=== PATIENT | female | born 1965 | race Caucasian/White ===

== ENCOUNTER 2016-11-01 16:24 | Emergency (ER) | payer SELFPAY ==
[~2016-11-01] VITALS: Ht 157.5 cm; Wt 56.0 kg
[~2016-11-01 16:24] MED LIST: NO HOME MEDS; ZPAK PO
[2016-11-01 17:17] VITALS: BP 134/70
== END 2016-11-01 17:16 | disposition home or self-care (01) | DRG 605 ==
LOC: ED 16:24
PROC: 2W3JX1Z Immobilization of Right Finger using Splint (ICD-10-PCS; principal; 2016-11-01)
DX: S60.041A Contusion of right ring finger without damage to nail, initial encounter (principal); F17.210 Nicotine dependence, cigarettes, uncomplicated; W22.8XXA Striking against or struck by other objects, initial encounter; Y93.H3 Activity, building and construction

== ENCOUNTER 2017-06-30 09:17 | Emergency (ER) | payer SELFPAY ==
[~2017-06-30] VITALS: Ht 157.5 cm; Wt 63.0 kg
[2017-06-30 10:21] LABS: HEMATOCRIT 45.9 % (37.0-47.0); HEMOGLOBIN 15.7 g/dl (12.0-16.0); IMMATURE GRANULOCYTES 0.2 % (0.0-1.0); MEAN CELL VOLUME 89.5 fL CALC (80.0-100.0); MEAN CORPUSCULAR HGB 30.6 pG CALC (26.0-32.0); MEAN CORPUSCULAR HGB CONC 34.2 g/L CALC (32.0-36.0); NEUT# 6.8 thou/uL (2.00-7.15); RED BLOOD COUNT 5.13 mill/uL (4.20-5.60)
[2017-06-30 10:27] LABS: URINE BILIRUBIN - DIPSTICK NEGATIVE (NEGATIVE); URINE BLOOD DIPSTICK LARGE (NEGATIVE); URINE COLOR YELLOW; URINE GLUCOSE - DIPSTICK NEGATIVE (NEGATIVE); URINE KETONE TRACE mg/dL (NEGATIVE); URINE LEUK ESTERASE NEGATIVE (NEGATIVE); URINE NITRITE - DIPSTICK NEGATIVE (Negative); URINE PROTEIN - DIPSTICK NEGATIVE (NEG-TRACE); URINE SPECIFIC GRAVITY >=1.030; URINE UROBILINOGEN - DIPSTICK 0.2 E.U./dL (0.2)
[2017-06-30 10:29] LABS: URINE CLARITY HAZY; URINE RBC 25-50 RBC/hpf (0-5)
[2017-06-30 10:30] LABS: URINE EPITHELIAL CELLS MODERATE EPI/hpf (0-FEW)
[2017-06-30 10:36] LABS: ALBUMIN 4.7 g/dL (3.2-5.0); ALKALINE PHOSPHATASE 100 u/l (38-126); ANION GAP 18 (6-22 (CALC)); BILIRUBIN, TOTAL 0.7 mg/dL (0.0-1.4); BUN 13 mg/dL (7-17); BUN/CREATININE RATIO 19 (12-20 (CALC)); CALCIUM 10.6 mg/dL (8.4-10.2); CARBON DIOXIDE 20 mmol/l (22-30); CHLORIDE 107 mmol/l (95-108); CREATININE 0.7 mg/dL (0.5-1.0); GFR > 60 ML/MIN (>=60 (CALC)); GFR FOR AFR.AMER. > 60 ML/MIN (>=60 (CALC)); GLUCOSE 111 mg/dL (65-105); POTASSIUM 4.5 mmol/l (3.5-5.1); SGOT/AST 33 u/l (14-36); SGPT/ALT 43 u/l (9-52); SODIUM 140 mmol/l (137-146); TOTAL PROTEIN 7.8 g/dL (6.3-8.2)
[2017-06-30 10:54] VITALS: BP 137/80
[2017-06-30] MEDS ORDERED: ZOFRAN ODT4 MG PO (10:55)
[2017-06-30] MEDS ORDERED: CIPROFLOXACN500 MG PO (10:55)
== END 2017-06-30 11:06 | disposition left against medical advice (07) | DRG 392 ==
LOC: ED 09:17
PROVIDERS: Emergency Medicine
DX: R10.2 Pelvic and perineal pain (principal); R11.0 Nausea; R31.9 Hematuria, unspecified; Z91.19 Patient's noncompliance with other medical treatment and regimen

== ENCOUNTER 2017-08-15 13:50 | Emergency (ER) | payer SELFPAY ==
[~2017-08-15] VITALS: Ht 157.5 cm; Wt 70.0 kg
[~2017-08-15 13:50] MED LIST changes: +CIPROFLOXACN500 MG PO; +ZOFRAN ODT4 MG PO
[2017-08-15] MEDS ORDERED: MOTRIN400 MG PO (15:27)
[2017-08-15 15:40] VITALS: BP 135/87
== END 2017-08-15 15:40 | disposition home or self-care (01) | DRG 556 ==
LOC: ED 13:50
DX: M25.511 Pain in right shoulder (principal); F17.210 Nicotine dependence, cigarettes, uncomplicated

== ENCOUNTER 2017-09-19 15:19 | Emergency (ER) | payer SELFPAY ==
[~2017-09-19] VITALS: Ht 157.5 cm; Wt 63.2 kg
[~2017-09-19 15:19] MED LIST changes: +MOTRIN400 MG PO
[2017-09-19 18:50] VITALS: BP 131/79
== END 2017-09-19 18:50 | DRG 392 ==
LOC: ED 15:19
DX: K22.2 Esophageal obstruction (principal); F17.210 Nicotine dependence, cigarettes, uncomplicated

== ENCOUNTER 2017-12-16 22:16 | Emergency (ER) | payer SELFPAY ==
[~2017-12-16] VITALS: Ht 157.5 cm; Wt 62.0 kg
[2017-12-16] MEDS ORDERED: BENADRYL 50MG C50 MG PO (23:30)
[2017-12-16] MEDS ORDERED: AMOXICILLIN500 MG PO (23:30)
[2017-12-16] MEDS ORDERED: ULTRAM50 M1 PO (23:33)
[2017-12-16 23:38] VITALS: BP 122/77
== END 2017-12-16 23:39 | disposition home or self-care (01) | DRG 607 ==
LOC: ED 22:16
DX: S90.861A Insect bite (nonvenomous), right foot, initial encounter (principal); L03.115 Cellulitis of right lower limb; F17.210 Nicotine dependence, cigarettes, uncomplicated; W57.XXXA Bitten or stung by nonvenomous insect and other nonvenomous arthropods, initial encounter

== ENCOUNTER 2018-02-16 18:10 | Emergency (ER) | payer SELFPAY ==
[~2018-02-16] VITALS: Ht 157.5 cm; Wt 62.2 kg
[~2018-02-16 18:10] MED LIST changes: +AMOXICILLIN500 MG PO; +BENADRYL 50MG C50 MG PO; +ULTRAM50 M1 PO
[2018-02-16] MEDS ORDERED: TRAMADOL HCL50 MG PO (18:46)
[2018-02-16] MEDS ORDERED: MOTRIN800 MG PO (18:46)
[2018-02-16 18:55] VITALS: BP 127/75
== END 2018-02-16 18:55 | disposition home or self-care (01) | DRG 563 ==
LOC: ED 18:10
PROC: 2W3CX1Z Immobilization of Right Lower Arm using Splint (ICD-10-PCS; principal; 2018-02-16)
DX: S62.316A Displaced fracture of base of fifth metacarpal bone, right hand, initial encounter for closed fracture (principal); X58.XXXA Exposure to other specified factors, initial encounter; Y92.009 Unspecified place in unspecified non-institutional (private) residence as the place of occurrence of the external cause

== ENCOUNTER 2018-02-18 13:24 | Emergency (ER) | payer SELFPAY ==
[~2018-02-18] VITALS: Ht 157.5 cm; Wt 65.9 kg
[~2018-02-18 13:24] MED LIST changes: +MOTRIN800 MG PO; +TRAMADOL HCL50 MG PO
[2018-02-18] MEDS ORDERED: EXCEDRIN PO (13:36)
[2018-02-18 14:01] VITALS: BP 129/83
== END 2018-02-18 14:00 | disposition home or self-care (01) | DRG 951 ==
LOC: ED 13:24
DX: Z46.89 Encounter for fitting and adjustment of other specified devices (principal); F17.210 Nicotine dependence, cigarettes, uncomplicated

== ENCOUNTER 2018-12-26 14:44 | Emergency (ER) | payer SELFPAY ==
[~2018-12-26] VITALS: Ht 157.5 cm; Wt 65.0 kg
[~2018-12-26 14:44] MED LIST changes: +EXCEDRIN PO
[2018-12-26] MEDS ORDERED: MOTRIN400 MG PO (16:00)
[2018-12-26 16:14] VITALS: BP 134/75
== END 2018-12-26 16:22 | disposition home or self-care (01) | DRG 536 ==
LOC: ED 14:44
DX: S32.591A Other specified fracture of right pubis, initial encounter for closed fracture (principal); F17.200 Nicotine dependence, unspecified, uncomplicated; X50.0XXA Overexertion from strenuous movement or load, initial encounter; Y93.F1 Activity, caregiving, bathing; Y92.002 Bathroom of unspecified non-institutional (private) residence as the place of occurrence of the external cause

== ENCOUNTER 2020-01-31 02:27 | Emergency (ER) | payer SELFPAY ==
[~2020-01-31] VITALS: Ht 157.5 cm; Wt 61.0 kg
[2020-01-31 02:44] VITALS: BP 147/85
== END 2020-01-31 03:20 | disposition home or self-care (01) | DRG 607 ==
LOC: ED 02:27
DX: S40.862A Insect bite (nonvenomous) of left upper arm, initial encounter (principal); F17.200 Nicotine dependence, unspecified, uncomplicated; W57.XXXA Bitten or stung by nonvenomous insect and other nonvenomous arthropods, initial encounter

== ENCOUNTER 2020-02-16 01:00 | Emergency (ER) | payer SELFPAY ==
[~2020-02-16] VITALS: Ht 157.5 cm; Wt 63.0 kg
[2020-02-16 01:50] LABS: HEMOGLOBIN 14.4 g/dl (12.0-16.0); IMMATURE GRANULOCYTES 0.4 % (0.0-5.0); MEAN CELL VOLUME 90.2 fL CALC (80.0-100.0); MEAN CORPUSCULAR HGB 29.5 pG CALC (26.0-32.0); MEAN CORPUSCULAR HGB CONC 32.7 g/dL CAL (32.0-36.0); NEUT# 10.46 thou/uL (2.00-7.15); RED BLOOD COUNT 4.88 mill/uL (4.20-5.60)
[2020-02-16 01:51] LABS: URINE BLOOD DIPSTICK LARGE (NEGATIVE); URINE COLOR YELLOW; URINE GLUCOSE - DIPSTICK NEGATIVE (NEGATIVE); URINE KETONE NEGATIVE (NEGATIVE); URINE LEUK ESTERASE NEGATIVE (NEGATIVE); URINE NITRITE - DIPSTICK NEGATIVE (Negative); URINE PROTEIN - DIPSTICK TRACE mg/dL (NEG-TRACE); URINE SPECIFIC GRAVITY >=1.030; URINE UROBILINOGEN - DIPSTICK 0.2 E.U./dL (0.2)
[2020-02-16 02:09] LABS: ALBUMIN 4.6 g/dL (3.2-5.0); ALKALINE PHOSPHATASE 116 u/l (38-126); AMYLASE 92 u/l (30-110); BILIRUBIN, TOTAL 0.5 mg/dL (0.0-1.4); BUN 12 mg/dL (7-17); BUN/CREATININE RATIO 21 (12-20 (CALC)); CHLORIDE 107 mmol/l (95-108); CREATININE 0.6 mg/dL (0.5-1.0); GFR > 60 ML/MIN (>=60 (CALC)); GFR FOR AFR.AMER. > 60 ML/MIN (>=60 (CALC)); LIPASE 68 u/l (23-300); POTASSIUM 3.9 mmol/l (3.5-5.1); SGOT/AST 23 u/l (14-36); SODIUM 139 mmol/l (137-146); TOTAL PROTEIN 8.1 g/dL (6.3-8.2)
[2020-02-16 02:14] LABS: URINE BILIRUBIN - DIPSTICK NEGATIVE (NEGATIVE)
[2020-02-16 02:16] LABS: URINE BACTERIA FEW hpf; URINE CALCIUM OXALATE CRYSTALS FEW lpf; URINE MUCUS FEW hpf (NONE-FEW); URINE SQUAMOUS EPITHELIAL CELL FEW EPI/hpf (0-FEW)
[2020-02-16 02:18] LABS: ANION GAP 10 (6-22 (CALC)); CARBON DIOXIDE 26 mmol/l (22-30)
[2020-02-16 02:41] VITALS: BP 129/60
[2020-02-16] MEDS ORDERED: PHENERGAN25 MG RE (02:42)
== END 2020-02-16 02:55 | disposition home or self-care (01) | DRG 392 ==
LOC: ED 01:00
PROVIDERS: Family Medicine
DX: K52.9 Noninfective gastroenteritis and colitis, unspecified (principal); F17.210 Nicotine dependence, cigarettes, uncomplicated

== ENCOUNTER 2020-11-15 02:28 | Emergency (ER) | payer SELFPAY ==
[~2020-11-15] VITALS: Ht 157.5 cm; Wt 63.0 kg
[~2020-11-15 02:28] MED LIST changes: +PHENERGAN25 MG RE
[2020-11-15] MEDS ORDERED: NAPROXEN500 MG PO (03:47)
[2020-11-15 03:51] VITALS: BP 141/60
== END 2020-11-15 04:03 | disposition home or self-care (01) | DRG 563 ==
LOC: ED 02:28
DX: S43.402A Unspecified sprain of left shoulder joint, initial encounter (principal); F17.200 Nicotine dependence, unspecified, uncomplicated; W01.0XXA Fall on same level from slipping, tripping and stumbling without subsequent striking against object, initial encounter; Y92.003 Bedroom of unspecified non-institutional (private) residence as the place of occurrence of the external cause

== ENCOUNTER 2021-06-04 01:27 | Emergency (ER) | payer SELFPAY ==
[~2021-06-04] VITALS: Ht 157.5 cm; Wt 66.0 kg
[~2021-06-04 01:27] MED LIST changes: +NAPROXEN500 MG PO
[2021-06-04 03:50] VITALS: BP 142/72
== END 2021-06-04 03:50 | disposition home or self-care (01) | DRG 563 ==
LOC: ED 01:27
DX: S63.601A Unspecified sprain of right thumb, initial encounter (principal); S63.501A Unspecified sprain of right wrist, initial encounter; F17.200 Nicotine dependence, unspecified, uncomplicated; W20.8XXA Other cause of strike by thrown, projected or falling object, initial encounter; Y93.89 Activity, other specified; Y92.009 Unspecified place in unspecified non-institutional (private) residence as the place of occurrence of the external cause

== ENCOUNTER 2021-08-24 16:39 | Emergency (ER) | payer SELFPAY ==
[~2021-08-24] VITALS: Ht 157.5 cm; Wt 64.5 kg
[2021-08-24 18:54] LABS: URINE BILIRUBIN - DIPSTICK NEGATIVE (NEGATIVE); URINE BLOOD DIPSTICK MODERATE (NEGATIVE); URINE COLOR YELLOW; URINE GLUCOSE - DIPSTICK NEGATIVE (NEGATIVE); URINE KETONE NEGATIVE (NEGATIVE); URINE LEUK ESTERASE NEGATIVE (NEGATIVE); URINE PH 5.5 (4.5-8.0); URINE PROTEIN - DIPSTICK NEGATIVE (NEG-TRACE); URINE SPECIFIC GRAVITY >=1.030; URINE UROBILINOGEN - DIPSTICK 0.2 E.U./dL (0.2)
[2021-08-24 19:07] LABS: URINE NITRITE - DIPSTICK NEGATIVE (Negative)
[2021-08-24 19:09] LABS: URINE CALCIUM OXALATE CRYSTALS FEW lpf; URINE WBC 0-2 WBC/hpf (0-5)
[2021-08-24 19:28] LABS: HEMOGLOBIN 14.4 g/dl (12.0-16.0); IMMATURE GRANULOCYTES 0.2 % (0.0-5.0); MEAN CELL VOLUME 91.7 fL CALC (80.0-100.0); MEAN CORPUSCULAR HGB 30.7 pG CALC (26.0-32.0); MEAN CORPUSCULAR HGB CONC 33.5 g/dL CAL (32.0-36.0); NEUT# 9.11 thou/uL (2.00-7.15); RED BLOOD COUNT 4.69 mill/uL (4.20-5.60); RED CELL DISTRI WIDTH 12.9 % (11.5-15.5)
[2021-08-24 19:45] LABS: ALBUMIN 4.4 g/dL (3.2-5.0); ALKALINE PHOSPHATASE 89 u/l (38-126); AMYLASE 68 u/l (30-110); BILIRUBIN, TOTAL 0.7 mg/dL (0.0-1.4); BUN 14 mg/dL (7-17); BUN/CREATININE RATIO 23 (12-20 (CALC)); CARBON DIOXIDE 26 mmol/l (22-30); CHLORIDE 106 mmol/l (95-108); CREATININE 0.6 mg/dL (0.5-1.0); GFR > 60 ML/MIN (>=60 (CALC)); GFR FOR AFR.AMER. > 60 ML/MIN (>=60 (CALC)); LIPASE 58 u/l (23-300); SGOT/AST 23 u/l (14-36); SODIUM 140 mmol/l (137-146); TOTAL PROTEIN 7.6 g/dL (6.3-8.2)
[2021-08-24 19:47] LABS: ANION GAP 12 (6-22 (CALC)); POTASSIUM 4.3 mmol/l (3.5-5.1)
[2021-08-24 23:37] VITALS: BP 136/76
== END 2021-08-24 23:37 | disposition home or self-care (01) | DRG 392 ==
LOC: ED 16:39
PROVIDERS: Family Medicine
DX: R10.31 Right lower quadrant pain (principal); E27.9 Disorder of adrenal gland, unspecified; F17.210 Nicotine dependence, cigarettes, uncomplicated; Z90.710 Acquired absence of both cervix and uterus
CPT/HCPCS: Q9967

== ENCOUNTER 2021-09-25 16:04 | Emergency (ER) | payer SELFPAY ==
[~2021-09-25] VITALS: Ht 157.5 cm; Wt 63.0 kg
[2021-09-25 16:15] VITALS: BP 131/82
[2021-09-25 16:30] VITALS: BP 134/75
[2021-09-25 16:45] VITALS: BP 127/73
[2021-09-25 19:49] VITALS: BP 127/73
[2021-09-25] MEDS ORDERED: FLEXERIL5 M1 PO (19:57)
== END 2021-09-25 20:03 | disposition home or self-care (01) | DRG 552 ==
LOC: ED 16:04
DX: M47.22 Other spondylosis with radiculopathy, cervical region (principal); F17.210 Nicotine dependence, cigarettes, uncomplicated

== ENCOUNTER 2021-10-02 17:13 | Emergency (ER) | payer SELFPAY ==
[~2021-10-02] VITALS: Ht 157.5 cm; Wt 65.0 kg
[~2021-10-02 17:13] MED LIST changes: +FLEXERIL5 M1 PO
[2021-10-02 17:21] VITALS: BP 140/70
[2021-10-02 17:30] VITALS: BP 126/81
[2021-10-02 18:03] VITALS: BP 131/73
[2021-10-02] MEDS ORDERED: FLOXIN OTIC0.3 % OD (18:08)
[2021-10-02 18:30] VITALS: BP 117/73
[2021-10-02 18:50] VITALS: BP 128/76
== END 2021-10-02 18:50 | disposition home or self-care (01) | DRG 125 ==
LOC: ED 17:13
DX: T15.91XA Foreign body on external eye, part unspecified, right eye, initial encounter (principal); X58.XXXA Exposure to other specified factors, initial encounter; F17.200 Nicotine dependence, unspecified, uncomplicated

== ENCOUNTER 2022-06-15 01:45 | Emergency (ER) | payer SELFPAY ==
[~2022-06-15] VITALS: Ht 157.5 cm; Wt 61.0 kg
[~2022-06-15 01:45] MED LIST changes: +FLOXIN OTIC0.3 % OD
[2022-06-15 01:52] VITALS: BP 164/83
[2022-06-15 02:00] VITALS: BP 135/78
[2022-06-15 02:25] LABS: HEMATOCRIT 45.3 % (37.0-47.0); IMMATURE GRANULOCYTES 0.2 % (0.0-5.0); MEAN CELL VOLUME 90.2 fL CALC (80.0-100.0); MEAN CORPUSCULAR HGB 29.9 pG CALC (26.0-32.0); MEAN CORPUSCULAR HGB CONC 33.1 g/dL CAL (32.0-36.0); NEUT# 7.73 thou/uL (2.00-7.15); RED BLOOD COUNT 5.02 mill/uL (4.20-5.60)
[2022-06-15 02:34] LABS: ALBUMIN 4.3 g/dL (3.2-5.0); ALKALINE PHOSPHATASE 96 u/l (38-126); ANION GAP 12 (6-22 (CALC)); BILIRUBIN, TOTAL 0.7 mg/dL (0.0-1.4); BUN 13 mg/dL (7-17); BUN/CREATININE RATIO 23 (12-20 (CALC)); CARBON DIOXIDE 22 mmol/l (22-30); CHLORIDE 110 mmol/l (95-108); CREATININE 0.6 mg/dL (0.5-1.0); GFR FOR AFR.AMER. > 60 ML/MIN (>=60 (CALC)); GFR OTHER RACES > 60 ML/MIN (>=60 (CALC)); POTASSIUM 3.9 mmol/l (3.5-5.1); SGOT/AST 23 u/l (14-36); SODIUM 140 mmol/l (137-146); TOTAL PROTEIN 7.6 g/dL (6.3-8.2)
[2022-06-15 03:15] VITALS: BP 125/74
[2022-06-15 04:04] LABS: URINE BILIRUBIN - DIPSTICK NEGATIVE (NEGATIVE); URINE BLOOD DIPSTICK SMALL (NEGATIVE); URINE COLOR YELLOW; URINE GLUCOSE - DIPSTICK NEGATIVE (NEGATIVE); URINE KETONE NEGATIVE (NEGATIVE); URINE LEUK ESTERASE NEGATIVE (NEGATIVE); URINE PROTEIN - DIPSTICK NEGATIVE (NEG-TRACE); URINE SPECIFIC GRAVITY 1.015; URINE UROBILINOGEN - DIPSTICK 0.2 E.U./dL (0.2)
[2022-06-15 04:06] LABS: URINE NITRITE - DIPSTICK NEGATIVE (Negative)
[2022-06-15] MEDS ORDERED: IMITREX100 M1 PO (04:12)
[2022-06-15 04:16] LABS: URINE BACTERIA FEW hpf; URINE RBC 25-50 RBC/hpf (0-5); URINE SQUAMOUS EPITHELIAL CELL FEW EPI/hpf (0-FEW); URINE WBC 0-2 WBC/hpf (0-5)
[2022-06-15 04:19] VITALS: BP 125/74
== END 2022-06-15 06:00 | disposition home or self-care (01) | DRG 103 ==
LOC: ED 01:45
PROVIDERS: Family Medicine
DX: G43.909 Migraine, unspecified, not intractable, without status migrainosus (principal); F17.210 Nicotine dependence, cigarettes, uncomplicated; Z20.822 Contact with and (suspected) exposure to COVID-19

== ENCOUNTER 2022-08-11 20:12 | Emergency (ER) | payer SELFPAY ==
[~2022-08-11] VITALS: Ht 157.5 cm; Wt 61.2 kg
[~2022-08-11 20:12] MED LIST changes: +IMITREX100 M1 PO
[2022-08-11 22:14] VITALS: BP 134/67
== END 2022-08-11 22:20 | disposition home or self-care (01) | DRG 563 ==
LOC: ED 20:12
DX: S63.91XA Sprain of unspecified part of right wrist and hand, initial encounter (principal); F17.200 Nicotine dependence, unspecified, uncomplicated; W01.0XXA Fall on same level from slipping, tripping and stumbling without subsequent striking against object, initial encounter; Y92.009 Unspecified place in unspecified non-institutional (private) residence as the place of occurrence of the external cause

== ENCOUNTER 2022-10-21 23:33 | Emergency (ER) | payer SELFPAY ==
[~2022-10-21] VITALS: Ht 157.5 cm; Wt 61.0 kg
[2022-10-22 00:18] VITALS: BP 147/85
[2022-10-22 00:30] VITALS: BP 138/92
[2022-10-22 01:51] VITALS: BP 138/92
== END 2022-10-22 01:57 | disposition home or self-care (01) | DRG 563 ==
LOC: ED 23:33
DX: S93.601A Unspecified sprain of right foot, initial encounter (principal); F17.200 Nicotine dependence, unspecified, uncomplicated; X50.0XXA Overexertion from strenuous movement or load, initial encounter

== ENCOUNTER 2022-10-31 15:39 | Emergency (ER) | payer SELFPAY ==
[~2022-10-31] VITALS: Ht 157.5 cm; Wt 61.2 kg
[2022-10-31 16:51] VITALS: BP 133/77
[2022-10-31 17:00] VITALS: BP 111/75
[2022-10-31 17:27] VITALS: BP 118/79
[2022-10-31 17:30] VITALS: BP 128/77
[2022-10-31 18:05] VITALS: BP 128/77
== END 2022-10-31 18:06 | disposition home or self-care (01) | DRG 556 ==
LOC: ED 15:39
DX: M25.512 Pain in left shoulder (principal); W01.0XXA Fall on same level from slipping, tripping and stumbling without subsequent striking against object, initial encounter; Y92.007 Garden or yard of unspecified non-institutional (private) residence as the place of occurrence of the external cause

== ENCOUNTER 2022-11-02 18:56 | Emergency (ER) | payer SELFPAY ==
[~2022-11-02] VITALS: Ht 157.5 cm; Wt 61.4 kg
[2022-11-02] VITALS (7 sets, daily range): BP systolic 124–158; BP diastolic 78–90
[2022-11-02 20:27] LABS: BASO% 0.4 % (0-3); EOS% 0.8 % (0-8); HEMATOCRIT 44.3 % (37.0-47.0); IMMATURE GRANULOCYTES 0.3 % (0.0-5.0); LYMPH% 13.1 % (15-41); MEAN CELL VOLUME 89.3 fL CALC (80.0-100.0); MEAN CORPUSCULAR HGB 30.2 pG CALC (26.0-32.0); MEAN CORPUSCULAR HGB CONC 33.9 g/dL CAL (32.0-36.0); MONO% 6.6 % (2-13); NEUT# 8.7 thou/uL (2.00-7.15); NEUT% 78.8 % (42-76); RED BLOOD COUNT 4.96 mill/uL (4.20-5.60); RED CELL DISTRI WIDTH 12.9 % (11.5-15.5)
[2022-11-02] MEDS ORDERED: PAXLOVID PO (20:49)
== END 2022-11-02 21:57 | disposition home or self-care (01) | DRG 179 ==
LOC: ED 18:56
PROVIDERS: Family Medicine
DX: U07.1 COVID-19 (principal); R50.9 Fever, unspecified; R05.9 Cough, unspecified; R11.2 Nausea with vomiting, unspecified; R51.9 Headache, unspecified; M79.10 Myalgia, unspecified site

== ENCOUNTER 2022-12-14 19:40 | Emergency (ER) | payer SELFPAY ==
[~2022-12-14] VITALS: Ht 157.5 cm; Wt 80.0 kg
[~2022-12-14 19:40] MED LIST changes: +PAXLOVID PO
[2022-12-14] MEDS ORDERED: IMITREX100 M1 PO (21:47)
[2022-12-14 21:53] VITALS: BP 154/86
== END 2022-12-14 22:12 | disposition home or self-care (01) | DRG 103 ==
LOC: ED 19:40
DX: G43.909 Migraine, unspecified, not intractable, without status migrainosus (principal); F17.200 Nicotine dependence, unspecified, uncomplicated

== ENCOUNTER 2024-03-06 22:29 | Emergency (ER) | payer SELFPAY ==
[~2024-03-06] VITALS: Ht 157.5 cm; Wt 65.0 kg
[~2024-03-06 22:29] MED LIST changes: +ALL DAY10 MG PO; +AMOX/K CLAV875 M1 PO; +DOXY-CAPS100 MG PO; +PRILOSEC OTC20 MG PO
[2024-03-06 22:51] VITALS: BP 151/81
[2024-03-06 23:00] VITALS: BP 138/89
[2024-03-06] MEDS ORDERED: LIDOCAINE VISCOUS 2% 15 ML UDC PO ONE (23:00)
[2024-03-06] MEDS ORDERED: PANTOPRAZOLE SODIUM Sesquihydr 40 MG/TAB PO ONE (23:00)
[2024-03-06] MEDS ORDERED: PROMETHAZINE HCL 25 MG/ML AMP IV ONE (23:00)
[2024-03-06] MEDS ORDERED: ALUM & MAG HYDROX-SIMETHICONE 30 ML PO ONE (23:00)
[2024-03-06] MEDS ORDERED: SODIUM CHLORIDE 0.9% 1,000 ML IV ONE (23:00)
[2024-03-06] MEDS ORDERED: ACETAMINOPHEN325 MG PO (23:04)
[2024-03-06 23:18] LABS: BASO% 0.6 % (0-3); EOS% 2.6 % (0-8); HEMATOCRIT 44.3 % (37.0-47.0); HEMOGLOBIN 15.3 g/dl (12.0-16.0); IMMATURE GRANULOCYTES 0.2 % (0.0-5.0); LYMPH% 29.9 % (15-41); MEAN CELL VOLUME 88.4 fL CALC (80.0-100.0); MEAN CORPUSCULAR HGB 30.5 pG CALC (26.0-32.0); MEAN CORPUSCULAR HGB CONC 34.5 g/dL CAL (32.0-36.0); MONO% 8.2 % (2-13); NEUT# 5.26 thou/uL (2.00-7.15); NEUT% 58.5 % (42-76); RED BLOOD COUNT 5.01 mill/uL (4.20-5.60); RED CELL DISTRI WIDTH 12.9 % (11.5-15.5)
[2024-03-06 23:31] VITALS: BP 143/77
[2024-03-06 23:34] LABS: ALBUMIN 4.5 g/dL (3.2-5.0); BILIRUBIN, TOTAL 0.6 mg/dL (0.02-1.3); CREATININE 0.6 mg/dL (0.5-1.0); POTASSIUM 3.9 mmol/l (3.5-5.1); TOTAL PROTEIN 7.6 g/dL (6.3-8.2)
[2024-03-07 00:05] VITALS: BP 143/77
== END 2024-03-07 00:20 | disposition home or self-care (01) | DRG 204 ==
LOC: ED 22:29
PROVIDERS: Family Medicine
DX: R05.9 Cough, unspecified (principal); K21.9 Gastro-esophageal reflux disease without esophagitis; F17.200 Nicotine dependence, unspecified, uncomplicated; Z20.822 Contact with and (suspected) exposure to COVID-19